=== PATIENT | female | born 1995 | race American Indian/Alaskan Native ===

== ENCOUNTER 2018-10-12 15:56 | Emergency (ER) | payer OTHER ==
[2018-10-12 16:29] LABS: HCG,QUALITATIVE URINE NEGATIVE (NEGATIVE)
[2018-10-12 16:34] LABS: SQUAMOUS EPITHIAL 2 /hpf (0-5); URINE BACTERIA RARE (<OCC); URINE BILIRUBIN NEGATIVE (NEGATIVE); URINE BLOOD 3+ (NEGATIVE); URINE CLARITY Clear (Clear); URINE COLOR Yellow (YELLOW); URINE GLUCOSE (UA) NORMAL (Normal); URINE LEUKOCYTE ESTERASE NEG Leu/uL (Negative); URINE PROTEIN NEGATIVE (NEGATIVE)
--- NOTE | 2018-10-12 17:02 | C.PDOC ---
History Of Present Illness 23 year old female with a history of constipation presents to the ED for evaluation of a bump on the rectum with a few episodes of blood in the stool for 1 month. Patient notes she has taken stool softeners for her current symptoms, with no improvement. Denies fever, nausea, vomiting, and any other associated symptoms. NEED PE Time Seen by Provider: 10/12/18 16:31 Chief Complaint (Nursing): Female Genitourinary History Per: Patient History/Exam Limitations: no limitations Onset/Duration Of Symptoms: Days (x1 month) Current Symptoms Are (Timing): Still Present Past Medical History Reviewed: Historical Data, Nursing Documentation, Vital Signs Vital Signs: Last Vital Signs Temp 99.5 F 10/12/18 16:00 Pulse 105 H 10/12/18 16:00 Resp 18 10/12/18 16:00 BP 112/80 10/12/18 16:00 Pulse Ox 100 10/12/18 16:00 Family History: States: Unknown Family Hx - Social History Hx Alcohol Use: Yes Hx Substance Use: No - Immunization History Hx Tetanus Toxoid Vaccination: No Hx Influenza Vaccination: No Hx Pneumococcal Vaccination: No Review Of Systems Constitutional: Negative for: Fever Gastrointestinal: Positive for: Other (bump on the rectum.). Negative for: Nausea, Vomiting ED Course And Treatment O2 Sat by Pulse Oximetry: 100 (RA) Pulse Ox Interpretation: Normal Medical Decision Making Medical Decision Making: Plan: -Urine culture. Glucose Blood POC HCG Urine Urinalysis Progress/Update: Patient stable for discharge home. Prescribed Anusol Suppository, Anusol_HC, and Miralax. Disposition Counseled Patient/Family Regarding: Diagnosis, Need For Followup, Rx Given - Disposition Referrals: Dayna Anderson MD [Non-Staff] - Disposition: HOME/ ROUTINE Disposition Time: 17:00 Condition: STABLE Additional Instructions: FOLLOW UP WITH YOUR DOCTOR IN 1-2 DAYS IF YOUR URINE CULTURE IS POSITIVE I WILL CALL YOU FOLLOW UP WITH UROLOGIST SCHEDULED RETURN TO ER IF YOU HAVE WORSENING OR CONCERNING SYMPTOMS Prescriptions: Hard Fat/Phenylephrine [place] [Anusol Suppository] 1 sup RC BID PRN #15 sup PRN Reason: Hemorrhoids Hydrocortisone 2.5% (Rectal) [Anusol-HC] 1 applic IA TID #1 tube Polyethylene Glycol 3350 [Miralax] 1 cap PO DAILY #1 bottle Instructions: Constipation, Adult (DC), Hemorrhoids (DC) Forms: [employer] ([place]ym[place]) - Clinical Impression Clinical Impression: Constipation, Hemorrhoid - Scribe Statement The provider has reviewed the documentation as recorded by the Scribe (Gloria Villela) Provider Attestation: All medical record entries made by the Scribe were at my direction and personally dictated by me. I have reviewed the chart and agree that the record accurately reflects my personal performance of the history, physical exam, medical decision making, and the department course for this patient. I have also personally directed, reviewed, and agree with the discharge instructions and disposition.
[2018-10-13 00:41] VITALS: BP 112/80; PULSE 105; RESP 18; TEMP 99.5; O2SAT 100
== END 2018-10-12 17:14 | disposition home or self-care (01) ==
LOC: C.ER 15:56
DX: K64.9 Unspecified hemorrhoids (principal); K59.00 Constipation, unspecified

== ENCOUNTER 2018-10-22 22:42 | Emergency (ER) | payer OTHER ==
[2018-10-22 22:56] VITALS: BP 126/85; PULSE 82; RESP 20; TEMP 98; O2SAT 100
[2018-10-22 23:50] LABS: SQUAMOUS EPITHIAL 3 /hpf (0-5); URINE BILIRUBIN NEGATIVE (NEGATIVE); URINE BLOOD NEGATIVE (NEGATIVE); URINE CLARITY Clear (Clear); URINE COLOR Yellow (YELLOW); URINE GLUCOSE (UA) NORMAL (Normal); URINE LEUKOCYTE ESTERASE NEG Leu/uL (Negative); URINE PROTEIN NEGATIVE (NEGATIVE); URINE UROBILINOGEN NORMAL mg/dL (0.2-1.0)
--- NOTE | 2018-10-23 00:45 | C.PDOC ---
History Of Present Illness 23 year old female presents to the ED c/o generalized body aches anterior chest wall pain. Patient states that today while at work patient started feeling anterior chest wall pain at 21:00. Patient went home but patient still persists. Patient states she has seem her PMD for similar symptoms in the past. Patient also c/o urinary frequency, seen by an urologist and is taking medication for "overactive bladder". Patient denies fever, chills, nausea, vomit, URI symptoms, cough, nasal congestion, rash , recent travel. Time Seen by Provider: 10/22/18 23:09 Chief Complaint (Nursing): Chest Pain History Per: Patient History/Exam Limitations: no limitations Onset/Duration Of Symptoms: Hrs Current Symptoms Are (Timing): Still Present Quality: "Pain" Recent travel outside of the [place]: No Additional History Per: Patient Past Medical History Reviewed: Historical Data, Nursing Documentation, Vital Signs Vital Signs: Last Vital Signs Temp 98 F 10/22/18 22:52 Pulse 82 10/22/18 22:52 Resp 20 10/22/18 22:52 BP 126/85 10/22/18 22:52 Pulse Ox 100 10/22/18 22:52 - Medical History PMH: No Chronic Diseases Surgical History: No Surg Hx Family History: States: Unknown Family Hx - Social History Hx Alcohol Use: Yes Hx Substance Use: No - Immunization History Hx Tetanus Toxoid Vaccination: No Hx Influenza Vaccination: No Hx Pneumococcal Vaccination: No Review Of Systems Constitutional: Positive for: Malaise. Negative for: Fever, Chills Cardiovascular: Positive for: Chest Pain. Negative for: Palpitations Respiratory: Negative for: Cough, Shortness of Breath Gastrointestinal: Negative for: Nausea, Vomiting, Abdominal Pain Skin: Negative for: Rash Neurological: Negative for: Weakness, Numbness, Headache, Dizziness Physical Exam - Physical Exam Appears: Non-toxic, No Acute Distress Skin: Normal Color, Warm, Dry Head: Atraumatic, Normacephalic Eye(s): bilateral: Normal Inspection Neck: Normal ROM, Supple Chest: Symmetrical, No Tenderness Cardiovascular: Rhythm Regular Respiratory: Normal Breath Sounds, No Rales, No Rhonchi, No Wheezing Gastrointestinal/Abdominal: Soft, No Tenderness, No Guarding, No Rebound Extremity: Normal ROM, No Tenderness, No Swelling Neurological/Psych: Oriented x3, Normal Speech, Normal Cognition Gait: Steady ED Course And Treatment ECG: Interpreted By Me, Viewed By Me ECG Rhythm: Sinus Rhythm Interpretation Of ECG: normal axis, normal intervals, no ST/T elevations Rate From EC O2 Sat by Pulse Oximetry: 100 (ON RA) Pulse Ox Interpretation: Normal - Radiology CXR: Interpreted by Me, Viewed By Me CXR Interpretation: Yes: No Acute Disease. No: Infiltrates, Fracture Progress Note: Plan: - CXR. - UA. Patient is resting comfortably, is no longer having chest pain or shortness of breath. Patient has no risk factors for pulmonary emboli or DVT. Clinical presentation is not suggestive of aortic dissection. Patient is being discharged home and is being advised to follow up with physician/clinic in 1-2 days. Disposition Counseled Patient/Family Regarding: Diagnosis, Need For Followup, Rx Given - Disposition Referrals: Dayna Anderson MD [Non-Staff] - Disposition: HOME/ ROUTINE Disposition Time: 00:42 Condition: STABLE Additional Instructions: Continue naproxen PO Take medications as directed Return to ER if worse Instructions: Muscle and Bone Pain (DC) Forms: [employer] ([place]i), Work Excuse - Clinical Impression Clinical Impression: Myalgia - PA / PHYSICAL THERAPY AID / Resident Statement MD/DO has reviewed & agrees with the documentation as recorded. - Scribe Statement The provider has reviewed the documentation as recorded by the Scribe Wayne Wallace All medical record entries made by the Scribe were at my direction and personally dictated by me. I have reviewed the chart and agree that the record accurately reflects my personal performance of the history, physical exam, medic al decision making, and the department course for this patient. I have also personally directed, reviewed, and agree with the discharge instructions and disposition.
--- NOTE | 2018-10-27 13:36 | RAD ---
Date of service: 10/23/2018 HISTORY: R/O INFILTRATE COMPARISON: No prior. TECHNIQUE: Chest PA and lateral FINDINGS: LUNGS: No active pulmonary disease. PLEURA: No significant pleural effusion identified. No pneumothorax apparent. CARDIOVASCULAR: No aortic atherosclerotic calcification present. Normal cardiac size. No pulmonary vascular congestion. OSSEOUS STRUCTURES: No significant abnormalities. VISUALIZED UPPER ABDOMEN: Normal. OTHER FINDINGS: None. IMPRESSION: No active disease. Concordant results with the preliminary interpretation rendered by the emergency department physician procedure.
--- NOTE | 2018-10-27 19:24 | CARD ---
APPROVED REPORT Date of service: 10/22/2018 EKG Measurement Heart [id number] <Conclusion> Normal sinus rhythm Normal ECG
== END 2018-10-23 01:00 | disposition home or self-care (01) ==
LOC: C.ER 22:42
DX: M79.10 Myalgia, unspecified site (principal)